=== PATIENT | female | born 1955 | race Caucasian/White ===

== ENCOUNTER 2016-11-05 08:08 | Outpatient (CLI) | payer OTHER ==
--- NOTE | 2016-11-05 14:46 | MRI Report ---
EXAM: RIGHT HAND THUMB DIGIT MR WITHOUT CONTRAST EXAM DATE: 11/05/2016 10:17 AM. CLINICAL HISTORY: Fall [place] with [place] strap in hand, right thumb injury. COMPARISON: None. TECHNIQUE: Multiplanar, multisequence T1-weighted and fluid-sensitive sequences of the finger without contrast. Other: None. FINDINGS: Bones: Nondisplaced fracture volar aspect first metacarpal head with marrow edema. Mild radial and volar subluxation of the right thumb proximal phalanx at the MCP joint. Cartilage: The articular cartilage is unremarkable. Ligaments: Full-thickness tear MCP ulnar collateral ligament with retraction. 50% partial thickness tear of the radial collateral ligament. Tendons: Extensor moreland injury of the thumb MCP joint level with radial subluxation of the extensor po llicis brevis and longus tendons. Musculature: Grade 1 strain flexor and opponens pollicis muscles. Other: No joint effusions or capsular rupture. Soft tissue edema around the thumb. IMPRESSION: 1. Nondisplaced fracture thumb metacarpal head. 2. Full-thickness retracted tear MCP ulnar collateral ligament with mild ulnar and volar subluxation of the thumb proximal phalanx at the MCP joint. 3. 50% partial tear right thumb MCP radial collateral ligament. 4. Grade 1 strains of the flexor and opponens pollicis muscles. 5. Radial subluxation extensor pollicis brevis and longus tendons with what appears to be an extensor moreland injury at the thumb MCP joint. [facility] MUSCULOSKELETAL RADIOLOGY SECTION Referring Provider Line: [phone] SITE ID: [id number]
== END 2016-11-05 08:09 | disposition home or self-care (01) ==
LOC: DI 08:08
PROVIDERS: ATTEND Nurse Practitioner Family
DX: S62.291A Other fracture of first metacarpal bone, right hand, initial encounter for closed fracture (principal); S63.641A Sprain of metacarpophalangeal joint of right thumb, initial encounter; S66.011A Strain of long flexor muscle, fascia and tendon of right thumb at wrist and hand level, initial encounter

== ENCOUNTER 2021-07-19 15:22 | Outpatient (CLI) | payer MEDICARE, MEDICAID ==
--- NOTE | 2021-07-19 16:37 | Ultrasound Report ---
PROCEDURE: Head or Neck Soft Tissue INDICATIONS: MUCOCELE OF MOUTH TECHNIQUE: Real time scanning was performed of the jaw/neck region of interest, with image documenta tion. COMPARISON: None. FINDINGS: No soft tissue abnormality seen, bilaterally. IMPRESSION: 1. No sonographic abnormality. Magnetic resonance imaging may be helpful for further evaluation. Reviewed by: Renny Cha MD on 07/19/2021 4:35 PM PDT Approved by: Renny Cha MD on 07/19/2021 4:35 PM PDT Station ID: [id number]
== END 2021-07-19 15:23 | disposition home or self-care (01) ==
LOC: DI 15:22
PROVIDERS: ATTEND Registered Nurse
DX: K13.79 Other lesions of oral mucosa (principal)